=== PATIENT | male | born 1990 | race Caucasian/White ===

== ENCOUNTER 2016-11-12 01:00 | Emergency (ER) | payer SELFPAY ==
[~2016-11-12] VITALS: Ht 175.3 cm; Wt 92.0 kg
[2016-11-12 01:15] VITALS: BP 126/65; PULSE 87; RESP 16; TEMP 98.3; O2SAT 96
--- NOTE | 2016-11-12 01:25 | PD ---
HPI . passed out and drunk Chief Complaint: Alcohol/Drug Intoxication Time Seen by Provider: 01:04 Travel History International Travel<30 days: No Contact w/Intl Traveler<30days: No Traveled to known affect area: No History of Present Illness HPI Patient is brought in to us via [facility] for alcohol intoxication. Apparently, they were called to the scene by his friends. He is drunk and passed out and is vomiting. No further history is available. PFSH Past Medical History ?: Unknown Social History Tobacco Use: Yes Allergies-Medications (Allergen,Severity, Reaction): Coded Allergies: UNOBTAINABLE (Unverified , 11/12/16) Reported Meds & Prescriptions Reported Meds & Active Scripts Active Active Prescriptions or Reported Medications Unobtainable Physical Exam Narrative GENERAL: Patient is lying on his right side in the position with a garbage bag tied around his neck. His clothes are soiled from vomitus. SKIN: Warm and dry. HEAD: Atraumatic. Normocephalic. EYES: Pupils equal and round. ENT: No nasal bleeding or discharge. Mucous membranes pink and moist. NECK: Trachea midline. Neck is supple. CARDIOVASCULAR: Regular rate and rhythm. Heart sounds are normal. RESPIRATORY: No accessory muscle use. Lungs are clear with full air movement throughout. GASTROINTESTINAL: Abdomen soft, non-tender, nondistended. MUSCULOSKELETAL: No obvious deformities. No edema. NEUROLOGICAL: Patient has no verbal response. He does not open his eyes. He is moving all 4 extremities spontaneously. PSYCHIATRIC: Unable to assess Data Data Last Documented VS Vital Signs Date Time Temp Pulse Resp B/P Pulse Ox O2 Delivery O2 Flow Rate FiO2 11/12/16 01:15 98.3 87 16 126/65 96 Orders Complete Blood Count With Diff (11/12/16 01:19) Basic Metabolic Panel (Bmp) (11/12/16 01:19) Alcohol (Ethanol) (11/12/16 01:19) Sodium Chlor 0.9% 1000 Ml Inj (Ns 1000 M (11/12/16 01:30) Sodium Chlor 0.9% 1000 Ml Inj (Ns 1000 M (11/12/16 01:30) Ondansetron Inj (Zofran Inj) (11/12/16 01:30) Protein Corrected Calcium(Pcc) (11/12/16 01:15) Potassium Chlor 20 Meq Premix (Kcl 20 Me (11/12/16 02:45) Calcium Gluconate Inj (Calcium Gluconate (11/12/16 02:45) Magnesium (Mg) (11/12/16 02:41) Magnesium Sulfate 1 Gm Premix (Magnesium (11/12/16 04:45) Potassium Chloride (Kcl) (11/12/16 05:30) Magnesium Oxide (Mag-Ox) (11/12/16 05:30) Basic Metabolic Panel (Bmp) (11/12/16 05:23) Labs Laboratory Tests Test 11/12/16 11/12/16 01:15 05:45 White Blood Count 12.1 TH/MM3 Red Blood Count 4.85 MIL/MM3 Hemoglobin 14.9 GM/DL Hematocrit 42.6 % Mean Corpuscular Volume 87.8 FL Mean Corpuscular Hemoglobin 30.7 PG Mean Corpuscular Hemoglobin 34.9 % Concent Red Cell Distribution Width 13.4 % Platelet Count 298 TH/MM3 Mean Platelet Volume 8.8 FL Neutrophils (%) (Auto) 59.9 % Lymphocytes (%) (Auto) 32.8 % Monocytes (%) (Auto) 5.3 % Eosinophils (%) (Auto) 1.4 % Basophils (%) (Auto) 0.6 % Neutrophils # (Auto) 7.2 TH/MM3 Lymphocytes # (Auto) 4.0 TH/MM3 Monocytes # (Auto) 0.6 TH/MM3 Eosinophils # (Auto) 0.2 TH/MM3 Basophils # (Auto) 0.1 TH/MM3 CBC Comment DIFF FINAL Differential Comment Sodium Level 151 MEQ/L 147 MEQ/L Potassium Level 2.1 MEQ/L 4.5 MEQ/L Chloride Level 120 MEQ/L 114 MEQ/L Carbon Dioxide Level 16.5 MEQ/L 23.2 MEQ/L Anion Gap 15 MEQ/L 10 MEQ/L Blood Urea Nitrogen 10 MG/DL 12 MG/DL Creatinine 0.56 MG/DL 0.90 MG/DL Estimat Glomerular Filtration 174 ML/MIN 100 ML/MIN Rate Random Glucose 92 MG/DL 107 MG/DL Calcium Level 5.1 MG/DL 8.4 MG/DL Protein Corrected Calcium 6.2 MG/DL Magnesium Level 1.2 MG/DL Total Protein 4.3 GM/DL Ethyl Alcohol Level 183 MG/DL MDM Medical Decision Making Medical Screen Exam Complete: Yes Emergency Medical Condition: Yes Medical Record Reviewed: Yes (he has no old records here.) Differential Diagnosis Differential diagnosis of altered mental status includes but is not limited to infection, electrolyte abnormality, neurological event, intoxication Narrative Course Patient is brought in to us by EMS for acute alcohol intoxication. The friends did not report any trauma to EMS. CBC & BMP Diagram 11/12/16 01:15 Calcium is low at 5.1. Magnesium is low at 1.2. He is currently receiving IV potassium and magnesium replacement. He has been given calcium gluconate to replace the calcium. I'm sure that all of these findings are chronic. 5:25 AM Patient has now awakened. He states he works 65 hours a week and drinks every chance he gets. He reports no chronic medical problems. Repeat electrolytes are markedly improved. Diagnosis Primary Impression: Electrolyte abnormality Additional Impression: Acute alcohol intoxication Qualified Code: F10.129 - Acute alcohol intoxication, with unspecified complication Scripts Unable to Obtain Active Prescriptions or Reported Meds Disposition: DISCHARGE HOME Condition: Stable Carey Zepeda MD Nov 12, 2016 01:25
[2016-11-12] MEDS ORDERED: ONDANSETRON HCL 4 MG/2 ML VIAL IV PUSH ONE (01:30)
[2016-11-12] MEDS ORDERED: SODIUM CHLOR 0.9% 1000 ML INJ 1,000 ML IV ONE ×2 (01:30)
[2016-11-12 01:51] LABS: AUTOMATED NEUTROPHIL # 7.2 TH/MM3 (1.8-7.7); BASOPHIL # 0.1 TH/MM3 (0-0.2); BASOPHIL % 0.6 % (0.0-2.0); EOSINOPHIL # 0.2 TH/MM3 (0-0.4); EOSINOPHIL % 1.4 % (0.0-4.0); HEMATOCRIT 42.6 % (39.0-51.0); HEMO FLAGS DIFF FINAL; LYMPH % 32.8 % (9.0-44.0); MEAN CELL VOLUME 87.8 FL (80.0-100.0); MEAN CORPUSCULAR HEMOGLOBIN 30.7 PG (27.0-34.0); MEAN CORPUSCULAR HGB CONC 34.9 % (32.0-36.0); MONO % 5.3 % (0.0-8.0); NEUT % 59.9 % (16.0-70.0); PLATELET COUNT 298 TH/MM3 (150-450); RED BLOOD COUNT 4.85 MIL/MM3 (4.50-5.90); RED CELL DISTRIBUTION WIDTH 13.4 % (11.6-17.2); WHITE BLOOD COUNT 12.1 TH/MM3 (4.0-11.0)
[2016-11-12 02:20] LABS: BICARBONATE 16.5 MEQ/L (21.0-32.0)
[2016-11-12 02:27] LABS: POTASSIUM 2.1 MEQ/L (3.5-5.1)
[2016-11-12] MEDS ORDERED: POTASSIUM CHLOR 20 MEQ PREMIX 100 ML IV SCH (02:45)
[2016-11-12] MEDS ORDERED: CALCIUM GLUCONATE 10% 1 GM/10 ML VIAL IV PUSH ONE (02:45)
[2016-11-12 03:09] LABS: CALCIUM-PROTEIN CORRECTED 6.2 MG/DL (8.5-10.1)
[2016-11-12] MEDS ORDERED: MAGNESIUM SULFATE 1 GM PREMIX 100 ML IV SCH (04:45)
[2016-11-12] MEDS ORDERED: MAGNESIUM OXIDE 400 MG TAB PO ONE (05:30)
[2016-11-12] MEDS ORDERED: POTASSIUM CHLORIDE 20 MEQ CONTROLLED RELEASE TAB PO ONE (05:30)
[2016-11-12 06:38] LABS: BICARBONATE 23.2 MEQ/L (21.0-32.0); POTASSIUM 4.5 MEQ/L (3.5-5.1)
== END 2016-11-12 07:14 | disposition home or self-care (01) ==
LOC: NEPC 01:00
DX: E87.8 Other disorders of electrolyte and fluid balance, not elsewhere classified (principal); F10.129 Alcohol abuse with intoxication, unspecified; Z72.0 Tobacco use
CPT/HCPCS: 80048; 80320; 83735; 84155; 85025; 96361; 96365; 96366; 96375; 99284; J0610; J2405; J3480; J7030